=== PATIENT | male | born 1995 | race Two or more races ===

== ENCOUNTER 2024-03-29 06:25 | Emergency (ER) | payer OTHER ==
[~2024-03-29] VITALS: Ht 182.9 cm; Wt 81.6 kg
[2024-03-29] MEDS ORDERED: ONDANSETRON HCL 2 MG/ML VIAL ONE (08:23)
[2024-03-29] MEDS ORDERED: FAMOTIDINE/PF 20 MG/2 ML VIAL ONE (08:24)
[2024-03-29] MEDS ORDERED: KETOROLAC TROMETHAMINE 60 MG VIAL IM ONE ×2 (08:24→08:30)
[2024-03-29] MEDS ORDERED: ONDANSETRON HCL 2 MG/ML VIAL IV ONE (08:30)
[2024-03-29] MEDS ORDERED: FAMOtidine 10 MG/ML (4ML VIAL) IV ONE (08:30)
[2024-03-29] MEDS ORDERED: 0.9 % SODIUM CHLORIDE 1,000 ML IV ONE (08:30)
[2024-03-29 08:51] LABS: ABG PH 7.412 (7.35-7.45); ABG PO2 115.3 mmHg (80-100); ABG pCO2 36.6 mmHg (35-45); BASE EXCESS -1.3 mmol/l; BICARBONATE 22.8 mmol/l (23-25); SaO2 98.5 %; Tco2 23.9 mmol/l
[2024-03-29 09:17] LABS: HEMATOCRIT 45.3 % (39.0-48.0); HEMOGLOBIN 15.9 g/dL (13-16.00); MEAN CELL VOLUME 87.7 fL (80.0-100.00); MEAN CORPUSCULAR HEMOGLOBIN 30.8 pg (27.00-32.0); MEAN CORPUSCULAR HGB CONC 35.2 g/dl (32.0-36.0); PLATELET COUNT 344 K/uL (150-450); RED BLOOD COUNT 5.17 M/uL (4.00-6.00); RED CELL DISTRIBUTION WIDTH 13.3 % (11.5-14.5)
[2024-03-29] MEDS ORDERED: ZOFRAN8 MG PO (09:57)
[2024-03-29] MEDS ORDERED: PEPCID AC20 MG PO (09:57)
[2024-03-29 12:48] LABS: allen test SATISFACTORY; o2 21 %; puncture site RADIAL RIGHT
== END 2024-03-29 10:09 | disposition home or self-care (01) ==
LOC: ER 06:27
PROVIDERS: General Practice
DX: R11.10 Vomiting, unspecified (principal); T58.8X1A Toxic effect of carbon monoxide from other source, accidental (unintentional), initial encounter; Y92.098 Other place in other non-institutional residence as the place of occurrence of the external cause